=== PATIENT | female | born 2000 | race Hispanic/Latino ===

== ENCOUNTER 2018-07-06 18:04 | Observation (INO) | payer BC ==
--- NOTE | 2018-07-06 19:50 | PDOC.FPROB ---
FMR OB H&P: HPI - History of Present Illness Chief Complaint: Elevated BP in Clinic Indentification: Ms Belcher is a 18yo @ 34wks by 10.3wk US (EDC 08/17/18) History of Present Illness: Blood pressure was elevated in clinic at 156/98 with repeat 145/95. She reports blurry vision in her right eye on Friday07/04/18 but no vision changes currently. Denies headache, RUQ pain. Endorses FM, denies LOF, VB, CTX or change in discharge. Primary Care Physician: Dr Goss FMR OB H&P: Current - Care : 1 Para: 0 Gestational age: 32 Due date: 08/17/18 Dating Criteria: 10.3wk US Course/Complications: Low lying placenta Elevated BPs Anemia of - OB Labs Blood type: O RH: positive Antibody Screen: negative HIV: negative RPR: negative HepBsAg: negative Rubella: immune Quad screen: negative Urine drug screen: negative 1 hour gtt: 114 A1c: 5.1% GBS: unknown H&H: .06/28 Platelets: 309 - First Trimester Ultrasound First trimester: Possible placenta previa - Anatomy Survey Anatomy survey: Limited, return in 4 weeks. Unable to visualize lips/nose. LVOT/RVOT. Arms FMR OB H&P: History - Past Medical History PMH: None - OB History OB History: First - LATHE SPOTTER History LATHE SPOTTER History: Not due for PAP for 1 yr - Surgical History Sx History: Unremarkable - Social History Social History: Denies alcohol, tobacco, drug use. - Family History Family History: Unremarkable FMR OB H&P: Medications - Current Home Medications: Medication Instructions Recorded Confirmed Type Ferrous Sulfate 325 mg PO QAM 07/06/18 07/06/18 History Comb No.42/Folic Acid 1 tablet PO DAILY 07/06/18 07/06/18 History [Prena1 Chewable Tablet] Allergies/Adverse Reactions: Allergies Allergy/AdvReac Type Severity Reaction Status Date / Time No Known Allergies Allergy Verified 07/06/18 21:21 FMR OB H&P: ROS - Review of Systems General: denies: fever/chills, weight/appetite/sleep changes, fatigue Eyes: reports: others (blurry vision in right eye 07/04/18). denies: double vision, scotomas, floaters ENT: denies: nasal congestion, rhinorrhea Cardiovascular: denies: chest pain, palpitation Respiratory: reports: shortness of breath. denies: cough, congestion Gastrointestinal: denies: abdominal pain, nausea, vomiting Genitourinary (Female): denies: vaginal discharge, vaginal bleeding, contractions Musculoskeletal: reports: swelling. denies: pain Neurologic: denies: weakness, headache Integumentary: denies: rash, lesions FMR OB H&P: Vital Signs - Heart Tones Baseline: 140 Variability: moderate Acceleration: present Deceleration: absent Category: category 1 FMR OB H&P: Physical Exam - Physical Exam General: NAD, awake, alert and oriented HEENT: normocephalic and atraumatic, MMM, conjunctiva clear, grossly normal hearing, oropharynx clear Neck: supple, trachea midline Heart: RRR, no murmurs/rubs/gallops, pulses present, no edema General: CTAB, good air movement, no wheezing Abdomen: soft, gravid, non-tender, bowel sound present Musculoskeletal: pulses present, FROM in all four extremities, no misalignment/ asymmetry, no atrophy Neurological: no focal deficit Skin: no rash, capillary refill <2 seconds Psychiatric: intact recent and remote memory, good judgement and insight, normal mood and affect - Pelvic Exam Membranes: Intact FMR OB H&P: A/P - Problem List (1) third trimester Current Visit: Yes Status: Acute (2) Elevated blood pressure affecting in third trimester, antepartum Current Visit: Yes Status: Acute Code(s): O16.3 - UNSPECIFIED MATERNAL HYPERTENSION, THIRD TRIMESTER (3) Low lying placenta nos or without hemorrhage, third trimester Current Visit: Yes Status: Acute Code(s): O44.43 - LOW LYING PLACENTA NOS OR WITHOUT HEMOR, THIRD TRIMESTER Disposition: Ms Belcher is a 18yo @ 34wks by 10.3wk US (EDC 08/17/18) Elevated BPs in third trimester - BPs in clinic 156/98 with repeat 145/95 - Initial BP here 151/89 - Ordered Pre-E labs: CBC, CMP, Urine protein/Cr and 24 hr urine - Plan to continue to monitor BPs overnight and 24hr urine collection sIUP - NST reactive - Continue PNV Low lying placenta - 1.25cm from internal os on 07/01 - Repeat TVUS at 36wks Anemia of - Last Hgb 9.1 - CBC ordered - Continue iron Discussion: Date/Time: 07/06/181949 This H&P was discussed with Dr. Johnston and Dr. Ocasio who agree with the above documentation and plan. Addendum - Attending - Attending Attestation Date/Time: 07/07/18 1003 I personally evaluated the patient and discussed the management with Dr. Gonzalez on 07/06/2018 I agree with the History, Examination, Assessment and Plan documented above with any addition or exceptions noted below- 18 yo @34 weeks sent from clinic due to elevated BP. Serial BPs in L&D with intermittently elevated BP ( pressures elevated). Denies any RAI, visual changes, abd pain. Category 1 FHTs. Opdyke- no ctx. Labs: Hjj=723, AST/ALT= 15/7, Urine Pr/Cr=0.42. A/P: 1) IUP @ 34 weeks with pre-eclampsia without severe features- will place in obs; 24 hour for protein. Will give course of steroids for lung maturity. NST qshift. 2) Low lying placenta- on USG on 07/01, placenta 1.25 cm from os. Will repeat USG in 2 weeks.
[2018-07-06 19:52] VITALS: BMI 34.4
[2018-07-06 20:28] LABS: #Eosinphils 0.1 thou/uL (0.0-0.7); #Monocytes 0.4 thou/uL (0.11-0.59); #Neutrophils 4.7 thou/uL (1.40-6.50); %Basophils 0.5 % (0.0-1.0); %Eosinophils 1.6 % (0.0-10.0); %Lymphocytes 27.3 % (28.0-48.0); %Monocytes 5.7 % (0.0-4.0); %Neutrophils 64.9 % (31.0-61.0); Hemoglobin 10.5 g/dL (12.0-16.0); Mean Corpuscular HGB CONC 33.7 g/dL (32.0-36.0); Mean Corpuscular Hemoglobin 27.4 pg (25.0-35.0); Mean Corpuscular Volume 81.4 fL (78.0-98.0); Mean Platelet Volume 9.5 fL (7.4-10.4); Platelet Count 198 thou/uL (130-400); RBC Distribution Width 17.2 % (11.5-14.5); Red Blood Cell (RBC) Count 3.83 mill/uL (4.00-5.20); White Blood Cell (WBC) Count 7.2 thou/uL (4.8-10.8)
[2018-07-06 20:46] LABS: ALT (SGPT) Less than 7 U/L (8-55); AST (SGOT) 15 U/L (5-34); Albumin 3.3 g/dL (3.5-5.0); Alkaline Phosphatase 131 U/L (40-150); Anion Gap 14 mmol/L (10-20); BUN (Urea Nitrogen) 12 mg/dL (7.0-18.7); Bilirubin, Total 0.2 mg/dL (0.2-1.2); Calc. Creatinine Clearance 186 mL/min (70-130); Calcium 9.6 mg/dL (7.8-10.44); Carbon Dioxide 20 mmol/L (22-29); Chloride 107 mmol/L (98-107); Estimated GFR-MDRD Greater than 90; Globulin 3.2 g/dL (2.4-3.5); Glucose 117 mg/dL (70-105); Potassium 3.8 mmol/L (3.5-5.1); Protein, Total 6.5 g/dL (6.0-8.3); Sodium 137 mmol/L (136-145)
[2018-07-06 21:37] LABS: Creatinine, Urine 259.95 mg/dL (47-110)
--- NOTE | 2018-07-07 00:04 | ULT ---
OB ULTRASOUND BIOPHYSICAL PROFILE: TECHNIQUE: Multiple longitudinal and transverse images of an intrauterine are obtained, using a Multi- Hertz curvilinear transducer. Real-time color-flow is used to evaluate the fetus. FINDINGS: Images demonstrate a viable intrauterine with the fetus in a cephalic presentation. The pl acenta is anterior and grade 2. Amniotic fluid index measures 13.1 cm. Cervical length measures 4.6 cm. Biophysical profile measurements are as follows: tone: 2 breathin movement: 2 Amniotic fluid volume: 2 Composite: 8/8 IMPRESSION: Biophysical profile measures 8/8. POS: [facility]
[2018-07-07] MEDS: Dexamethasone 4 mg/ml Vial IM SCH ×3 (01:17→22:38)
--- NOTE | 2018-07-07 08:01 | PDOC.OBAPN ---
FMR OB AP PN: Sub - Interval History Hospital Day: 2 Chief Complaint: elevated BP Indentification: @ 34.1 wks by 10.3wk US Interval History: Denies RAI, SOB, visual changes, swelling. +FM, no N/V/D, no discharge, cxns FMR OB AP PN: Obj - Maternal Vital signs: BP: 137/88 -> 119/72 HR: 77 RR: 18 Tmax: 98.2 Pox: 98% on ra Wt: 82kg - Urine output I&O: 07/06/18 07/07/18 07/08/18 06:59 06:59 06:59 Intake Total 250 Output Total 450 Balance -200 FMR OB AP PN: Exam - Physical Exam General: NAD, awake, alert and oriented HEENT: normocephalic and atraumatic, PERRLA, EOMI Neck: supple Heart: RRR, normal S1/S2, no murmurs/rubs/gallops, pulses present General: CTAB, no respiratory distress, good air movement, no wheezing Abdomen: soft, gravid, fundus(cm), bowel sound present Musculoskeletal: normal gait and station, pulses present Skin: no rash, good tugor, capillary refill <2 seconds FMR OB AP PN: Data - Labs Lab results: Laboratory Results - last 24 hr 07/06/18 07/06/18 07/06/18 20:17 20:17 20:56 WBC 7.2 RBC 3.83 L Hgb 10.5 L Hct 31.1 L MCV 81.4 MCH 27.4 MCHC 33.7 RDW 17.2 H Plt Count 198 MPV 9.5 Neutrophils % 64.9 H Lymphocytes % 27.3 L Monocytes % 5.7 H Eosinophils % 1.6 Basophils % 0.5 Neutrophils # 4.7 Lymphocytes # 2.0 Monocytes # 0.4 Eosinophils # 0.1 Basophils # 0.0 Sodium 137 Potassium 3.8 Chloride 107 Carbon Dioxide 20 L Anion Gap 14 BUN 12 Creatinine 0.63 Estimated GFR (MDRD) Greater than 90 Glucose 117 H Calcium 9.6 Total Bilirubin 0.2 AST 15 ALT Less than 7 L Alkaline Phosphatase 131 Serum Total Protein 6.5 Albumin 3.3 L Globulin 3.2 Albumin/Globulin Ratio 1.0 L U Random Total Protein 109 H Urine Creatinine 259.95 H FMR OB AP PN: A/P - Problem List (1) Elevated blood pressure affecting in third trimester, antepartum Current Visit: Yes Status: Acute Code(s): O16.3 - UNSPECIFIED MATERNAL HYPERTENSION, THIRD TRIMESTER (2) Low lying placenta nos or without hemorrhage, third trimester Current Visit: Yes Status: Acute Code(s): O44.43 - LOW LYING PLACENTA NOS OR WITHOUT HEMOR, THIRD TRIMESTER (3) third trimester Current Visit: Yes Status: Acute Discussion: Date/Time: 07/07/18 0800 18yo @ 34.1 wks by 10.3wk US EDC 08/17/18 Elevated BPs in third trimester - BPs in clinic 156/98,145/95 - verbal reported BP 151/89 on arrival, not charted - recorded BPs 136.85, 137/88, 119/72 - Pr/Cr 0.42, CMP, CBC WNL - 24 hour urine pending sIUP - NST qShift - Continue PNV - betamethasone q 12 hours Low lying placenta - 1.25cm from internal os on 07/01 - Repeat TVUS at 36wks Anemia of - hgb 10.5 - Continue iron This H&P was discussed with Dr. Melgar who agrees with the above documentation and plan.
[2018-07-07] MEDS ORDERED: Dexamethasone 4 mg/ml Vial IM SCH (09:00)
[2018-07-07] MEDS: Prenatal Vitamin 1 TAB PO SCH (09:07)
[2018-07-07] MEDS: Ferrous Gluconate 324 MG TAB PO SCH (09:07)
--- NOTE | 2018-07-07 18:51 | PDOC.OBAPN ---
FMR OB AP PN: Sub - Interval History Hospital Day: 2 Chief Complaint: Elevated Pressures Indentification: 18 year old @ 34.1 weeks Interval History: Patient doing well. Denies RAI/vision changes. Reports mild SOB , no distress FMR OB AP PN: Obj - Maternal Vital signs: BP: 145/73 HR: 87 RR: 18 Tmax: 98.1 Pox: 98% on RA - Urine output I&O: 07/06/18 07/07/18 07/08/18 06:59 06:59 06:59 Intake Total 250 Output Total 450 Balance -200 FMR OB AP PN: Exam - Physical Exam General: NAD HEENT: normocephalic and atraumatic, EOMI Heart: RRR General: CTAB Neurological: cranial nerves II through XII intact, DTR +2 FMR OB AP PN: Data - Labs Lab results: Laboratory Results - last 24 hr 07/06/18 07/06/18 07/06/18 20:17 20:17 20:17 WBC 7.2 RBC 3.83 L Hgb 10.5 L Hct 31.1 L MCV 81.4 MCH 27.4 MCHC 33.7 RDW 17.2 H Plt Count 198 MPV 9.5 Neutrophils % 64.9 H Lymphocytes % 27.3 L Monocytes % 5.7 H Eosinophils % 1.6 Basophils % 0.5 Neutrophils # 4.7 Lymphocytes # 2.0 Monocytes # 0.4 Eosinophils # 0.1 Basophils # 0.0 Sodium 137 Potassium 3.8 Chloride 107 Carbon Dioxide 20 L Anion Gap 14 BUN 12 Creatinine 0.63 Estimated GFR (MDRD) Greater than 90 Glucose 117 H Uric Acid 6.5 H Calcium 9.6 Total Bilirubin 0.2 AST 15 ALT Less than 7 L Alkaline Phosphatase 131 Serum Total Protein 6.5 Albumin 3.3 L Globulin 3.2 Albumin/Globulin Ratio 1.0 L U Random Total Protein Urine Creatinine 07/06/18 20:56 WBC RBC Hgb Hct MCV MCH MCHC RDW Plt Count MPV Neutrophils % Lymphocytes % Monocytes % Eosinophils % Basophils % Neutrophils # Lymphocytes # Monocytes # Eosinophils # Basophils # Sodium Potassium Chloride Carbon Dioxide Anion Gap BUN Creatinine Estimated GFR (MDRD) Glucose Uric Acid Calcium Total Bilirubin AST ALT Alkaline Phosphatase Serum Total Protein Albumin Globulin Albumin/Globulin Ratio U Random Total Protein 109 H Urine Creatinine 259.95 H FMR OB AP PN: A/P - Problem List (1) Elevated blood pressure affecting in third trimester, antepartum Current Visit: Yes Status: Acute Code(s): O16.3 - UNSPECIFIED MATERNAL HYPERTENSION, THIRD TRIMESTER (2) Low lying placenta nos or without hemorrhage, third trimester Current Visit: Yes Status: Acute Code(s): O44.43 - LOW LYING PLACENTA NOS OR WITHOUT HEMOR, THIRD TRIMESTER (3) third trimester Current Visit: Yes Status: Acute Disposition: Patient stable at this time. No complaints Discussed need to stay overnight for further BP monitoring. 24-hr urine pending. AM labs ordered. Will need closer monitoring after discharge including frequent office visits and testing. Discussion: Date/Time: 07/07/18 8301 This H&P was discussed with Dr. Melgar who agrees with the above documentation and plan.
[2018-07-07 21:05] LABS: Urine Total Volume 1550 mL (600-1600)
[2018-07-07 21:27] LABS: Protein - 24 Hr 1395 mg/24 hr (Less than 300); Protein, Urine 90 mg/dL (1-14)
[2018-07-08 06:55] LABS: Platelet Count 204 thou/uL (130-400)
[2018-07-08 06:59] LABS: AST (SGOT) 14 U/L (5-34); Calc. Creatinine Clearance 177 mL/min (70-130); Estimated GFR-MDRD Greater than 90
[2018-07-08 07:24] LABS: Hemoglobin 10.1 g/dL (12.0-16.0); Mean Corpuscular Volume 81.5 fL (78.0-98.0); Red Blood Cell (RBC) Count 3.68 mill/uL (4.00-5.20); White Blood Cell (WBC) Count 7.5 thou/uL (4.8-10.8)
[2018-07-08 07:25] LABS: Mean Corpuscular HGB CONC 33.8 g/dL (32.0-36.0); Mean Corpuscular Hemoglobin 27.5 pg (25.0-35.0); Mean Platelet Volume 9.3 fL (7.4-10.4); RBC Distribution Width 17.4 % (11.5-14.5)
--- NOTE | 2018-07-08 08:01 | PDOC.OBAPN ---
FMR OB AP PN: Sub - Interval History Hospital Day: 3 Chief Complaint: elevated bp Indentification: 18 yo at 34/2 wks by 10.3 wk US Interval History: elevated BPs overnight, denies RAI, SOB, vision changes, swelling FMR OB AP PN: Obj - Maternal Vital signs: BP: 147/75, 157/81, 154/73, 125/74 HR: 85 RR: Tmax: 18 Pox: 98% on ra Wt: 82kg - Urine output I&O: 07/07/18 07/08/18 07/09/18 06:59 06:59 06:59 Intake Total 250 2000 Output Total 450 700 Balance -200 1300 R OB AP PN: Exam - Physical Exam General: NAD, awake, alert and oriented HEENT: normocephalic and atraumatic, PERRLA, EOMI Neck: supple Heart: RRR, normal S1/S2, no murmurs/rubs/gallops, pulses present General: CTAB, no respiratory distress, good air movement, no wheezing Abdomen: soft, gravid, non-tender, bowel sound present Musculoskeletal: normal gait and station, pulses present Skin: no rash, capillary refill <2 seconds Lymphatic: no unusual bruising or bleeding R OB AP PN: Data - Labs Lab results: Laboratory Results - last 24 hr 07/06/18 07/07/18 07/08/18 20:17 20:42 06:27 WBC RBC Hgb Hct MCV MCH MCHC RDW Plt Count MPV Creatinine 0.66 Estimated GFR (MDRD) Greater than 90 Uric Acid 6.5 H AST 14 Urine Protein 90 H Ur Collection Duration 24 Urine Total Volume 1550 U Tot Protein 24h, Calc 1395 07/08/18 06:27 WBC 7.5 RBC 3.68 L Hgb 10.1 L Hct 30.0 L MCV 81.5 MCH 27.5 MCHC 33.8 RDW 17.4 H Plt Count 204 MPV 9.3 Creatinine Estimated GFR (MDRD) Uric Acid AST Urine Protein Ur Collection Duration Urine Total Volume U Tot Protein 24h, Calc R OB AP PN: A/P - Problem List (1) Elevated blood pressure affecting in third trimester, antepartum Current Visit: Yes Status: Acute Code(s): O16.3 - UNSPECIFIED MATERNAL HYPERTENSION, THIRD TRIMESTER (2) Low lying placenta nos or without hemorrhage, third trimester Current Visit: Yes Status: Acute Code(s): O44.43 - LOW LYING PLACENTA NOS OR WITHOUT HEMOR, THIRD TRIMESTER (3) third trimester Current Visit: Yes Status: Acute Discussion: Date/Time: 07/08/18 0801 18yo @ 34.1 wks by 10.3wk US EDC 08/17/18 Mild Pre-eclampsia - mild range bps overnight - denies sxs, denies cxns, bleeding, d/c - 24 hr urine proterin 1300mg (mild range) - Pr/Cr 0.42, CMP, CBC WNL - f/u in clinc in 2 days, BPP/NST - home bp cuff, take pressures x2 per day, triage precautions discussed - MFM US on 07/13 - anticipate scheduled delivery at 37wks, will discuss on rounds sIUP - NST qShift - Continue PNV - dexamethasone q 12 hours, 4th dose this AM Low lying placenta - 1.25cm from internal os on 07/01 - Repeat TVUS at 36wks - MFM US on 07/13 Anemia of - hgb 10.5 - Continue iron This H&P was discussed with Dr. Melgar who agrees with the above documentation and plan.
[2018-07-08] MEDS: Prenatal Vitamin 1 TAB PO SCH (09:26)
[2018-07-08] MEDS: Ferrous Gluconate 324 MG TAB PO SCH (09:26)
--- NOTE | 2018-07-08 11:02 | PDOC.EVN ---
Event Note - Event Note Event Note: Reviewed heart tracing Multiple accels No cxns or decels Moderate variability Baseline 140
[2018-07-08] MEDS: Dexamethasone 4 mg/ml Vial IM SCH (11:30)
[2018-07-08 11:56] VITALS: BP 127/75; TEMP 98
--- NOTE | 2018-07-08 15:25 | DIS ---
DATE OF ADMISSION: 07/06/2018 DATE OF DISCHARGE: 07/08/2018 RESIDENT: Ezio Ayon MD. ADMITTING ATTENDING: Tanya Johnston MD. DISCHARGE ATTENDING: Elsie Santacruz DO. CONSULTS: None. PROCEDURES: heart monitoring. PRIMARY DIAGNOSIS: -induced hypertension. SECONDARY DIAGNOSIS: A 34-week intrauterine , low-lying placenta, anemia, . DISCHARGE MEDICATIONS: None. Discontinued medications: None. HISTORY OF PRESENT ILLNESS/HOSPITAL COURSE: This is a 18-year-old, G1, P0, who came in at 34 weeks by 10.3 week ultrasound for elevated blood pressures in clinic. She did have occasional blurry vision in her right eye 2 days prior to admission, but no changes at the hospital. Denied headache, right upper quadrant pain. Endorsed good movement. No loss of fluid, bleeding, contractions, or other changes. The patient was given a -induced hypertension workup. Urine protein-creatinine ratio as well as 24-hour urine protein suggest mild preeclampsia. The patient had a few mild range blood pressures over the course of the stay. She was asymptomatic. She did not have any contractions throughout the stay. monitoring throughout the stay was reactive. The patient is discharged at 34 and 2 weeks. She has a clinic followup in 2 days. She will have weekly BPP and NST up until delivery. She has an ultrasound scheduled with [facility] in 5 days. This ultrasound will determine the location of her placenta and then whether or not a or vaginal delivery will be indicated. We will plan for induction or section at [address] Uric acid was mildly elevated at 6.7. Her transaminases were normal. Her platelets were within normal limits throughout the stay. DISPOSITION: Stable. DISCHARGE INSTRUCTIONS: 1. Location: Home. 2. Diet: Regular. 3. Activity: As tolerated. 4. Followup: Follow up in 2 days by [facility] for BPP, NST, OB clinic followup. Appointment on 07/13/2018 with [facility] for ultrasound. This patient will need to be scheduled for induction versus section at 37 weeks' gestation based on the results of the [facility] ultrasound. She will need weekly BPP and NSTs up until delivery. She will need to be seen in clinic weekly throughout the rest of the with weekly pre-elapse. Job ID: [id number] [facility]
== END 2018-07-08 12:10 | disposition home or self-care (01) ==
LOC: L&D/OP 18:04 → 3SW 22:09
PROVIDERS: ADMIT Family Medicine; ATTEND Family Medicine
DX: O13.3 Gestational [pregnancy-induced] hypertension without significant proteinuria, third trimester (principal); O14.03 Mild to moderate pre-eclampsia, third trimester; O44.43 Low lying placenta NOS or without hemorrhage, third trimester; O99.013 Anemia complicating pregnancy, third trimester; D64.9 Anemia, unspecified; Z3A.34 34 weeks gestation of pregnancy; Z79.899 Other long term (current) drug therapy
CPT/HCPCS: 36415; 59025; 76819; 80053; 82565; 82570; 84156; 84450; 84550; 85025; 85027; 87086; 96372; 99285; G0378; J1100

== ENCOUNTER 2018-07-14 18:04 | Inpatient (IN) | payer BC, SELFPAY ==
[~2018-07-14 18:04] MED LIST: ePHEDrine 50 MG/ML VIAL ONE
[2018-07-14] MEDS ORDERED: Acetaminophen 500 MG TAB PO PRN (18:40)
[2018-07-14] MEDS ORDERED: Promethazine HCl 25 MG/ML VIAL IM PRN ×2 (18:40→22:10)
[2018-07-14] MEDS ORDERED: Ondansetron PF 4 MG/2 ML Vial IVP PRN ×2 (18:40→22:10)
[2018-07-14 18:41] VITALS: BMI 34.5
--- NOTE | 2018-07-14 18:45 | PDOC.FPROB ---
FMR OB H&P: HPI - History of Present Illness Chief Complaint: HTN History of Present Illness: 18 yo G1 @ 35.1 by 10.3 wk US presents from clinic after having elevated BPs 159 /105, 158/99, 154/108, reactive NST. She denies headache, vision changes, dizziness, RUQ pain, or swelling more than normal. Notes suprapubic discomfort, denies dysuria. Denies contractions, vaginal discharge or bleeding. She has Pre- E this that has been monitored. GBS sent but not resulted. Primary Care Physician: Chandra Ayon FMR OB H&P: Current - Care : 1 Para: 0 Gestational age: 35.1 Due date: 08/17/2018 Dating Criteria: 10.3 wk US Course/Complications: Low lying placenta, Pre-E - OB Labs Blood type: O RH: positive Antibody Screen: negative HIV: negative RPR: negative HepBsAg: negative Rubella: immune 1 hour gtt: 114 A1c: 5.2 H&H: 9.1/26.1 Platelets: 284 - Additional Ultrasound Additional: [facility] ultrasound 07/13 showed placenta 1.1 cm from os FMR OB H&P: History - Past Medical History PMH: carpal tunnel - OB History OB History: Pre-eclampsia, low lying placenta, iron deficiency anemia - [employer]IRS[employer] History [employer] History: None - Surgical History Sx History: None FMR OB H&P: Medications - Current Home Medications: Medication Instructions Recorded Confirmed Type Ferrous Sulfate 325 mg PO QAM 07/06/18 07/14/18 History Comb No.42/Folic Acid 1 tablet PO DAILY 07/06/18 07/14/18 History [Prena1 Chewable Tablet] Allergies/Adverse Reactions: Allergies Allergy/AdvReac Type Severity Reaction Status Date / Time No Known Allergies Allergy Verified 07/06/18 21:21 FMR OB H&P: ROS - Review of Systems General: denies: fever/chills Cardiovascular: reports: orthopnea. denies: chest pain, edema Respiratory: denies: cough, shortness of breath Gastrointestinal: denies: abdominal pain, cramping, vomiting Genitourinary (Female): denies: dysuria, vaginal discharge, vaginal bleeding, contractions, vaginal pressure Neurologic: denies: seizures, headache FMR OB H&P: Vital Signs - Maternal Vital signs: 165/101, 74 - Heart Tones Baseline: 150 Variability: moderate Acceleration: absent Category: category 1 Friant contractions every: none FMR OB H&P: Physical Exam - Physical Exam General: awake, alert and oriented HEENT: normocephalic and atraumatic Heart: RRR, normal S1/S2, other (mild nonpitting edema BLE) General: CTAB, no respiratory distress Abdomen: soft, gravid Skin: good tugor FMR OB H&P: A/P - Problem List (1) Pre-eclampsia Current Visit: Yes Status: Acute Code(s): O14.90 - UNSPECIFIED PRE-ECLAMPSIA , UNSPECIFIED TRIMESTER (2) Anemia affecting Current Visit: Yes Status: Acute Code(s): O99.019 - ANEMIA COMPLICATING , UNSPECIFIED TRIMESTER (3) Low lying placenta nos or without hemorrhage, third trimester Current Visit: No Status: Acute Code(s): O44.43 - LOW LYING PLACENTA NOS OR WITHOUT HEMOR, THIRD TRIMESTER Discussion: Date/Time: 07/14/181844 Pre-eclampsia w/ severe features - previous diagnosis of pre-E monitored in outpatient setting, 24 hr urine prot 1400. Now BP 173/105 qualifying pt for severe features. - s/p steroids x4 - CAT 1 - get CBC, CMP, urine prot/cr labs stat - start magnesium, hydralazine prn - plan for tonight 2/2 pre-E w/ severe features Low lying placenta - 1.1 cm from os on MFM US 07/13 Anemia - Hgb 9.9 05/2018, on iron supplement - pending H/H here This H&P was discussed with Dr. Stokes and Dr. Segovia who agree with the above documentation and plan.
[2018-07-14] MEDS ORDERED: Calcium Gluc 4.6 MEQ/10 ML (100 MG/ML) SLOW IVP PRN (19:15)
[2018-07-14] MEDS ORDERED: Magnesium Sulfate 20 GM/WATER 500 ML BAG IVPB SCH (19:15)
[2018-07-14] MEDS ORDERED: hydrALAZINE 20 MG/ML VIAL SLOW IVP PRN (19:17)
[2018-07-14] MEDS: Lactated Ringer's 1,000 ML IV SCH (19:30)
[2018-07-14] MEDS ORDERED: hydrALAZINE 20 MG/ML VIAL SLOW IVP SCH (19:30)
[2018-07-14 20:27] LABS: Hemoglobin 11.9 g/dL (12.0-16.0); Mean Corpuscular HGB CONC 33.4 g/dL (32.0-36.0); Mean Corpuscular Hemoglobin 27.2 pg (25.0-35.0); Mean Corpuscular Volume 81.4 fL (78.0-98.0); Mean Platelet Volume 9.9 fL (7.4-10.4); Platelet Count 213 thou/uL (130-400); Red Blood Cell (RBC) Count 4.37 mill/uL (4.00-5.20); White Blood Cell (WBC) Count 6.6 thou/uL (4.8-10.8)
[2018-07-14 20:28] LABS: Bilirubin Negative (Negative); Blood, Urine Negative (Negative); Clarity CLOUDY (Clear); Glucose, Urine (Dipstick) Negative (Negative); Leukocyte Moderate (Negative); Nitrite Negative (Negative); Protein, Urine (Dipstick) > or equal to 300 mg/dL (Neg-Trace); Specific Gravity, Urine 1.026 (1.002-1.036); pH, Urine 6.5 (5.0-9.0)
[2018-07-14 20:30] LABS: Bacteria/HPF 1+ HPF (None Seen); Hyaline Casts/LPF 7-10 HYALINE CAST LPF (0-3 Hyaline); Pathc Cast-AUWi Flag 1.16 (0-2.49)
[2018-07-14] MEDS ORDERED: Fentanyl 100 MCG/2 ML VIAL ONE (20:31)
[2018-07-14] MEDS ORDERED: MORPHINE 5 MG/10 ML PF VIAL ONE (20:31)
[2018-07-14 20:32] LABS: Urine Culture Reflex No No
[2018-07-14] MEDS ORDERED: ePHEDrine/0.9% NaCl/PF SYRINGE 50 mg/10 ml ONE (20:32)
[2018-07-14] MEDS ORDERED: Oxytocin 10 UNITS/ML VIAL ONE (20:32)
--- NOTE | 2018-07-14 20:45 | PDOC.EVN ---
Event Note - Event Note Event Note: started mag and hydralazine bp 137/78 patient asx
[2018-07-14 20:51] LABS: ALT (SGPT) Less than 7 U/L (8-55); AST (SGOT) 16 U/L (5-34); Alkaline Phosphatase 158 U/L (40-150); Anion Gap 15 mmol/L (10-20); BUN (Urea Nitrogen) 15 mg/dL (7.0-18.7); Bilirubin, Total Less than 0.2 mg/dL (0.2-1.2); Calc. Creatinine Clearance 176 mL/min (70-130); Calcium 9.7 mg/dL (7.8-10.44); Carbon Dioxide 19 mmol/L (22-29); Chloride 107 mmol/L (98-107); Estimated GFR-MDRD Greater than 90; Glucose 103 mg/dL (70-105); Potassium 4.1 mmol/L (3.5-5.1); Sodium 137 mmol/L (136-145)
[2018-07-14] MEDS ORDERED: Bicitra 30 ML UDCUP PO SCH (21:00)
[2018-07-14 21:10] LABS: Syphilis Antibody Nonreactive (Nonreactive); Syphilis Antibody Index 0.06 S/CO (<1.00 Non-Reactive)
[2018-07-14 21:45] LABS: Creatinine, Urine 171.9 mg/dL (47-110)
[2018-07-14] MEDS ORDERED: HYDROmorphone 2 MG/ML VIAL SLOW IVP PRN (22:10)
[2018-07-14] MEDS ORDERED: diphenhydrAMINE 50 MG/ML VIAL IVP PRN (22:10)
[2018-07-14] MEDS ORDERED: Naloxone HCl 0.4 mg/ml Vial IV PRN (22:10)
[2018-07-14] MEDS ORDERED: Eucerin (Mineral Oil/Petrolatum,White) 30 gm Jar TOP PRN (22:10)
[2018-07-14] MEDS ORDERED: Ketorolac Tromethamine 30 MG/ML VIAL IVP PRN (22:10)
[2018-07-14] MEDS ORDERED: Naloxone HCl 0.4 mg/ml Vial IVP PRN ×2 (22:10)
[2018-07-14] MEDS ORDERED: L&D-Morphine 4 MG/ML VIAL SLOW IVP PRN (22:10)
[2018-07-14] MEDS ORDERED: Promethazine HCl 25 MG SUPP PR PRN (22:10)
[2018-07-14] MEDS ORDERED: Ondansetron HCl/PF 4 MG/2 ML Vial IVP PRN (22:10)
[2018-07-14] MEDS ORDERED: Meperidine HCl/PF 25 MG/ML VIAL SLOW IVP PRN (22:10)
[2018-07-14] MEDS ORDERED: Communication Order-Pharmacy FS SCH (22:15)
[2018-07-14] MEDS ORDERED: Ketorolac Tromethamine 30 MG/ML VIAL IVP SCH (22:15)
[2018-07-14 23:41] LABS: HBSAg Index 0.23 S/CO (0-0.99); Hep B Surf Ag Non-Reactive S/CO (NonReactive)
[2018-07-14 23:42] LABS: HIV (1/2) Antibody/Antigen Non-Reactive (NonReactive)
[2018-07-15] MEDS: Misoprostol 200 MCG TAB ONE ×3 (00:20→00:22)
[2018-07-15] MEDS: Lactated Ringer's 1,000 ML IV SCH ×2 (00:52→13:49)
--- NOTE | 2018-07-15 01:46 | PDOC.EVN ---
Event Note - Event Note Event Note: Called to bedside by nurse around 0000 for post op bleeding. Patient had intraoperative QBL of 710. She then had hemorrhage of 300 ml followed by 289 ml an hour later. Fundus noted to be firm at umbilicus without further hemorrhage on fundal massage. Instructed nurse to give rectal cytotec 800 mg. Heart: RRR, no M/R/G neuro: reflex 2+ 18 yr old G1 s/p PLTCS at 35.1 wks 2/2 preeclampsia with severe features now post op approx 2 hours at time of exam. PTIUP delivered via PLTCS hemorrhage -will give 800 mg cytotec rectally -fundus firm -monitor closely pre-eclampsia with severe features s/p delivery -BP now all < 140/90 -mag initiated -cont to monitor closely
--- NOTE | 2018-07-15 02:29 | PDOC.EVN ---
Event Note - Event Note Event Note: 4 hour post op note and mag check Patient doing well. Denies headache, vision change, nausea, RUQ abdominal pain. Bleeding has decreased. BP 122/79, max was 157/76 @ 0055. Bandages clean, dry, intact. 18 yr old G1 s/p PLTCS at 35.1 wks 2/2 preeclampsia with severe features hemorrhage - Patient had intraoperative QBL of 710. She then had hemorrhage of 300 ml followed by 289 ml an hour later - s/p 1 dose rectal cytotec. Bleeding improved. - Uterus firm @ umbilicus Pre-eclampsia with severe features s/p delivery, asymptomatic - BP now all < 140/90 - continue mag for 24 hrs (until 2044) - DTRs intact, urine output adequate - cont to monitor closely, recheck in 4 hrs.
--- NOTE | 2018-07-15 04:01 | OP ---
DATE OF PROCEDURE: 07/14/2018 RESIDENT SURGEON: Ezio Ayon MD BED MANAGER SURGEON: Keiko Goss MD. ATTENDING SURGEON: Jose Segovia MD PROCEDURE: Primary low transverse section. PREOPERATIVE DIAGNOSES: 1. intrauterine , 35.1 weeks gestation. 2. Preeclampsia with severe features. 3. Low-lying placenta, 1 cm from os. POSTOPERATIVE DIAGNOSES: 1. intrauterine , 35.1 weeks gestation. 2. Preeclampsia with severe features. 3. Low-lying placenta, 1 cm from os. ANESTHESIA: Spinal. INDICATIONS: This is a 18-year-old G1, P0 female at 35 and 1 weeks gestation, who presents for section secondary to PE with severe features and low-lying placenta. PROCEDURE IN DETAIL: After risks, benefits, and alternatives were explained to the patient, she gave informed consent. Preoperative antibiotics included cefazolin 2 g IV. The patient was taken to the operating room and spinal anesthesia was initiated. The patient was placed in the supine position with a left tilt and prepped and draped in the usual sterile fashion. A Pfannenstiel incision was made with a scalpel and carried down to the level of the fascia which was sharply nicked. The fascial cut was extended bilaterally with Craven scissors. The inferior and superior edges of the cut, fascial edges were elevated with Ricci clamps and the underlying rectus muscles were sharply and bluntly dissected free. The recti were divided digitally and retracted manually. The peritoneum was entered bluntly and retracted manually. A bladder blade was placed. A bladder flap was not needed as the bladder was low. A low-transverse score was made with a scalpel and the uterus was entered in the midline with the scalpel. Clear fluid was seen. Hysterotomy was extended manually. The was noted to be vertex. With fundal pressure, the infant did not initially deliver. Therefore, vacuum assistance was used. Vacuum was placed and elevated to green pressure. The infant delivered easily without any pop offs. The infant's mouth and nares were bulb suctioned. The cord was clamped and cut, and grossly normal female was handed to waiting nurse. Cord blood was obtained. Placenta was manually extracted and found to be intact with three-vessel cord and discarded. The uterus was externalized and the endometrium was curetted with a dry lap. The bladder blade was replaced and the uterus was closed with a running locking 0 Monocryl suture followed by a running nonlocking 0 Monocryl imbricating suture. Following this, hemostasis was noted. The abdomen was examined and found to be free of clots and bleeders. The uterus was internalized and the hysterotomy was again noted to be hemostatic. The peritoneum was closed with a running nonlocking 2-0 Vicryl suture. The fascia was closed with a running nonlocking 0 PDS suture. The subcutaneous tissue was irrigated and there were no bleeders. The skin was approximated using a running 0 Monocryl on a Abdullahi needle. The subcutaneous tissue was closed using simple interrupted knots of 2-0 plain gut. The patient tolerated the procedure well and was taken to the recovery room in stable condition. The patient continued on magnesium for 24 hours after delivery. ESTIMATED BLOOD LOSS: 710 mL. COMPLICATIONS: None. SPECIMENS: Cord blood sent to lab for blood type. Grossly normal female with Apgars of 8 and 9, delivered at 10:04 p.m. on 07/14/2018, with weight of 5 pounds 3 ounces. DRAINS: Barragan to gravity draining clear urine. Job ID: [id number]
[2018-07-15] MEDS: Magnesium Sulfate 20 gm/500 ml 20 GM/500 ML BAG IVPB SCH ×2 (04:13→13:49)
--- NOTE | 2018-07-15 06:29 | PDOC.EVN ---
Event Note - Event Note Event Note: Mag Check Note 18 yr old G1 s/p PLTCS at 35.1 wks 2/2 preeclampsia with severe features Patient doing well. Denies headache, vision change, nausea, RUQ abdominal pain. BP 128/72, max was 139/90 since last check. Bandages clean, dry, intact. hemorrhage - Patient had intraoperative QBL of 710. She then had hemorrhage of 300 ml followed by 289 ml an hour later - s/p 1 dose rectal cytotec. Bleeding improved overnight but pad did have more bleeding this morning, nurse to weigh now. - Uterus firm @ umbilicus Pre-eclampsia with severe features s/p delivery, asymptomatic - BP now all < 140/90 - continue mag for 24 hrs (until 2044) - DTRs intact, urine output adequate - cont to monitor closely, recheck in 4 hrs.
--- NOTE | 2018-07-15 07:29 | PDOC.OBPPN ---
FMR OB PN: Subj - Interval History Hospital Day: 2 Day: 1 Indentification: 18 yo @ 35.1 wks by 10.3 wk US FMR OB PN: Obj - Maternal Vital signs: BP: 126/79 HR: 95 RR: 18 - Urine output I&O: Urine output - 1200 cc overnight (avg 100-200cc/hr) - Lochia Lochia: scant FMR OB PN: Exam - Physical Exam General: NAD HEENT: normocephalic and atraumatic Heart: RRR, normal S1/S2 General: CTAB Neurological: cranial nerves II through XII intact, DTR +2 : bandage intact FMR OB PN: Data - Labs Lab results: Laboratory Results - last 24 hr 07/14/18 07/14/18 07/14/18 20:06 20:06 20:06 WBC RBC Hgb Hct MCV MCH MCHC RDW Plt Count MPV Sodium 137 Potassium 4.1 Chloride 107 Carbon Dioxide 19 L Anion Gap 15 BUN 15 Creatinine 0.67 Estimated GFR (MDRD) Greater than 90 Glucose 103 Calcium 9.7 Total Bilirubin Less than 0.2 L AST 16 ALT Less than 7 L Alkaline Phosphatase 158 H Serum Total Protein 6.0 Albumin 3.0 L Globulin 3.0 Albumin/Globulin Ratio 1.0 L Urine Color Urine Clarity Urine pH Ur Specific [place] Urine Protein Urine Glucose (UA) Urine Ketones Urine Blood Urine Nitrite Urine Bilirubin Urine Urobilinogen Ur Leukocyte Esterase Urine RBC Urine WBC Ur Squamous Epith Cells Urine Bacteria Hyaline Casts Urine Culture Reflexed U Random Total Protein Urine Creatinine Syphilis IgG/IgM Ab Nonreactive Hep Bs Antigen Non-Reactive HIV 1&2 Antigen & Ab Blood Type Antibody Screen 07/14/18 07/14/18 07/14/18 20:06 20:06 20:06 WBC 6.6 RBC 4.37 Hgb 11.9 L Hct 35.5 L MCV 81.4 MCH 27.2 MCHC 33.4 RDW 17.0 H Plt Count 213 MPV 9.9 Sodium Potassium Chloride Carbon Dioxide Anion Gap BUN Creatinine Estimated GFR (MDRD) Glucose Calcium Total Bilirubin AST ALT Alkaline Phosphatase Serum Total Protein Albumin Globulin Albumin/Globulin Ratio Urine Color Urine Clarity Urine pH Ur Specific [place] Urine Protein Urine Glucose (UA) Urine Ketones Urine Blood Urine Nitrite Urine Bilirubin Urine Urobilinogen Ur Leukocyte Esterase Urine RBC Urine WBC Ur Squamous Epith Cells Urine Bacteria Hyaline Casts Urine Culture Reflexed U Random Total Protein Urine Creatinine Syphilis IgG/IgM Ab Hep Bs Antigen HIV 1&2 Antigen & Ab Non-Reactive Blood Type O POSITIVE Antibody Screen NEGATIVE 07/14/18 07/14/18 20:10 20:10 WBC RBC Hgb Hct MCV MCH MCHC RDW Plt Count MPV Sodium Potassium Chloride Carbon Dioxide Anion Gap BUN Creatinine Estimated GFR (MDRD) Glucose Calcium Total Bilirubin AST ALT Alkaline Phosphatase Serum Total Protein Albumin Globulin Albumin/Globulin Ratio Urine Color YELLOW Urine Clarity CLOUDY Urine pH 6.5 Ur Specific [place] 1.026 Urine Protein > or equal to 300 H Urine Glucose (UA) Negative Urine Ketones Negative Urine Blood Negative Urine Nitrite Negative Urine Bilirubin Negative Urine Urobilinogen 1.0 Ur Leukocyte Esterase Moderate H Urine RBC 4-6 Urine WBC Greater Than 50-TNTC H Ur Squamous Epith Cells 7-10 H Urine Bacteria 1+ H Hyaline Casts 7-10 HYALINE CAST H Urine Culture Reflexed No U Random Total Protein 813 H Urine Creatinine 171.90 H Syphilis IgG/IgM Ab Hep Bs Antigen HIV 1&2 Antigen & Ab Blood Type Antibody Screen FMR OB PN: A/P - Problem List (1) delivery with vacuum assistance, delivered, current hospitalization Current Visit: Yes Status: Acute Code(s): O82 - ENCOUNTER FOR DELIVERY WITHOUT INDICATION (2) Severe pre-eclampsia affecting first Current Visit: Yes Status: Acute Code(s): O14.10 - SEVERE PRE-ECLAMPSIA, UNSPECIFIED TRIMESTER (3) hemorrhage Current Visit: Yes Status: Acute Code(s): O72.1 - OTHER IMMEDIATE HEMORRHAGE (4) care following delivery Current Visit: Yes Status: Acute Code(s): Z39.2 - ENCOUNTER FOR ROUTINE FOLLOW-UP Disposition: On Mag for 24 hours after delivery. No signs of Mg toxicity. No further severe range pressures. PRNs available. hemorrhage has resolved. Lochia normal. AM H/H pending Pt tolerating clears. Has not passed flatus yet. Continue routine PP care Discussion: Date/Time: 07/15/18 3686 This H&P was discussed with Dr. Johnston who agrees with the above documentation and plan. Addendum - Attending - Attending Attestation Date/Time: 07/15/18 8256 I personally evaluated the patient and discussed the management with Dr. Goss I agree with the History, Examination, Assessment and Plan documented above with any addition or exceptions noted below- Patient without complaints. Denies any RAI, visual changes. Afebrile VSS U/C=381-767 mL/hr. A/P: 1) POD #1 S/P 1* LCT C/S for low lying placenta and pre-eclampsia with severe features- on magnesium sulfate- continue for total of 24 hours post delivery. Good urine output. BP much improved. Advance diet.
[2018-07-15 11:02] LABS: Hemoglobin 7.5 g/dL (12.0-16.0); Mean Corpuscular HGB CONC 33.9 g/dL (32.0-36.0); Mean Corpuscular Hemoglobin 27.6 pg (25.0-35.0); Mean Corpuscular Volume 81.5 fL (78.0-98.0); Mean Platelet Volume 9.1 fL (7.4-10.4); Platelet Count 173 thou/uL (130-400); RBC Distribution Width 17.3 % (11.5-14.5); Red Blood Cell (RBC) Count 2.72 mill/uL (4.00-5.20); White Blood Cell (WBC) Count 9.6 thou/uL (4.8-10.8)
[2018-07-15] MEDS ORDERED: HYDROcodone/Acetaminophen 5/325 mg Tablet PO PRN ×2 (12:20→20:19)
--- NOTE | 2018-07-15 12:24 | PDOC.EVN ---
Addendum entered and electronically signed by Bhavik Lofton DO 07/15/18 12:45 : BPs have been running 120s/70s. Last two BPs 122/70, 125/77 Original Note: Event Note - Event Note Event Note: Pt is doing well and has been up to seen her in the NICU. She denies SOB , changes in her vision, headaches. She reports mild lightheadedness. Reflexes are 2/4 globally, Urine output is 150ml in the last hour, heart RRR, lungs CTAB. We will continue mag, start some clear liquids.
[2018-07-15] MEDS ORDERED: Calcium Gluc 4.6 MEQ/10 ML (100 MG/ML) SLOW IVP PRN (20:19)
[2018-07-15] MEDS ORDERED: Acetaminophen 325 MG TAB PO PRN (20:19)
[2018-07-15] MEDS ORDERED: NS / Oxytocin 40 units/1000ml 1,000 ML IV SCH (20:19)
--- NOTE | 2018-07-15 20:27 | PDOC.EVN ---
Event Note - Event Note Event Note: 07/15/2018 at 17:00 Patient doing well. She denies any shortness of breath, chest pain, swelling. Adequate urine output. Lungs clear to auscultation. Systolic murmur auscultated. DTR's 2+. Highest BP has been 142/80's. Patient asymptomatic. Hg low at 7.5. She was up to see infant in NICU today and denied any dizziness. She does have a systolic murmur on exam. Will recheck H&H in AM and transfuse if symptomatic or Hg <7. Continue BID iron. Plan to d/c Mg and transfer to floor in 2-3 hours. Patient doing well and BP's well controlled. Patient has not required any medications. Susi Ceballos, DO PGY-2
[2018-07-15] MEDS ORDERED: Ibuprofen 800 MG TAB PO SCH (20:45)
[2018-07-15] MEDS: Docusate Calcium (SURFAK) 240 MG CAP PO SCH (21:00)
[2018-07-15] MEDS: Ferrous Sulfate 325 MG TAB PO SCH (21:00)
[2018-07-16] MEDS: HYDROcodone/Acetaminophen 5/325 mg Tablet PO PRN ×3 (04:30→21:31)
[2018-07-16] MEDS: Lactated Ringer's 1,000 ML IV SCH ×3 (05:54→17:54)
[2018-07-16] MEDS: Ibuprofen 800 MG TAB PO SCH ×3 (05:56→21:31)
--- NOTE | 2018-07-16 07:31 | PDOC.OBPPN ---
FMR OB PN: Subj - Interval History Hospital Day: 2 Day: 2 Chief Complaint: None Indentification: 18 year old Interval History: delivered via primary LTCS due to severe pre-eclampsia/low lying placenta FMR OB PN: Obj - Maternal Vital signs: BP: 150/88 HR: 80 RR: 16 Tmax: 98.5 Pox: 97% on RA - Urine output I&O: 07/15/18 07/16/18 07/17/18 06:59 06:59 06:59 Output Total 750 Balance -750 - Lochia Lochia: Minimal - Pain Management Pain scale: 0 Intervention: oral medication ([place], Ibuprofen) FMR OB PN: Exam - Physical Exam General: NAD Heart: RRR General: CTAB Abdomen: soft, fundus(cm) (3 fingerbreadths below umbilicus) Neurological: cranial nerves II through XII intact Skin: no rash - Pelvic Exam : non-tender, no discharge, no edema, normal lochia, other (well- healing pfannenstiel incision) FMR OB PN: Data - Labs Lab results: Laboratory Results - last 24 hr 07/15/18 10:38 WBC 9.6 RBC 2.72 L Hgb 7.5 L Hct 22.2 L MCV 81.5 MCH 27.6 MCHC 33.9 RDW 17.3 H Plt Count 173 MPV 9.1 FMR OB PN: A/P - Problem List (1) delivery with vacuum assistance, delivered, current hospitalization Current Visit: Yes Status: Acute Code(s): O82 - ENCOUNTER FOR DELIVERY WITHOUT INDICATION (2) Severe pre-eclampsia affecting first Current Visit: Yes Status: Acute Code(s): O14.10 - SEVERE PRE-ECLAMPSIA, UNSPECIFIED TRIMESTER (3) hemorrhage Current Visit: Yes Status: Acute Code(s): O72.1 - OTHER IMMEDIATE HEMORRHAGE (4) care following delivery Current Visit: Yes Status: Acute Code(s): Z39.2 - ENCOUNTER FOR ROUTINE FOLLOW-UP Disposition: Severe pre-eclampsia. - one elevated BP this morning. Pt asymptomatic, did not require treatment. Will continue to monitor. - Mg discontinued last night. - Will continue to monitor for 48-72 hours. hemorrhage. -Hg yesterday 7.5. - pt asymptomatic. - will repeat H/H this AM. - Continue PO iron. Late , delivered. - routine PP care. - ambulation encouraged given increased risk of DVT/PE with recent surgery, weight, and pre-e. - discussed making appointment for 2 weeks PP for pt as well as 3-5 day follow- up for . Discussion: Date/Time: 07/16/18 8206 This H&P was discussed with who agrees with the above documentation and plan. Addendum - Attending - Attending Attestation Date/Time: 07/16/18 5819 I personally evaluated the patient and discussed the management with Dr. Goss I agree with the History, Examination, Assessment and Plan documented above with any addition or exceptions noted below- Patient without complaints. Ambulating in halls. Denies any dizziness. [place] well controlled. Afebrile VSS. A/ P: 1) POD#2 s/p 1* LCT C/S for low lying placenta and pre-eclampsia with severe features- continue current care. BP much better. Continue to monitor. 2) Anemia- asymptomatic; recheck in AM. Continue iron replacement therapy.
[2018-07-16 09:17] LABS: Platelet Count 149 thou/uL (130-400)
[2018-07-16] MEDS: Ferrous Sulfate 325 MG TAB PO SCH ×2 (09:35→21:31)
[2018-07-16] MEDS: Docusate Calcium (SURFAK) 240 MG CAP PO SCH ×2 (09:35→21:31)
[2018-07-17] MEDS: Lactated Ringer's 1,000 ML IV SCH ×3 (02:01→21:35)
--- NOTE | 2018-07-17 05:49 | PDOC.PP ---
Post Progress Note Post Day #: 3 Subjective: Pt is doing well this morning. She reports passing gas but no BM. She reports ambulation well without dizziness or light headednes. PO intake tolerated: yes Flatus: yes Ambulation: yes Vital Signs (12 hours) Temp Pulse Resp BP Pulse Ox 07/16/18 21:30 100 07/16/18 19:47 98.3 F 98 20 147/74 H 100 Weight Weight 83.007 kg - Physical Examination General: NAD Cardiovascular: no m/r/g, RRR Respiratory: clear to auscultation bilaterally, non-labored breathing Abdominal: + bowel sounds, lochia, no distention, appropriately TTP Fundus firm & at: 2 cm below umbilicus Extremities: negative homans (B) (trace edema of lower extremities) Skin: CS incision dry & intact Neurological: no gross focal deficits Psychiatric: A&Ox3, normal affect Result Diagrams: 07/17/18 07:13 07/14/18 20:06 Additional Labs: Post Labs Blood Type O POSITIVE 07/14/18 20:06 Hep Bs Antigen Non-Reactive S/CO (NonReactive) 07/14/18 20:06 (1) Anemia affecting Code(s): O99.019 - ANEMIA COMPLICATING , UNSPECIFIED TRIMESTER Status : Acute (2) delivery with vacuum assistance, delivered, current hospitalization Code(s): O82 - ENCOUNTER FOR DELIVERY WITHOUT INDICATION Status: Acute (3) care following delivery Code(s): Z39.2 - ENCOUNTER FOR ROUTINE FOLLOW-UP Status: Acute (4) hemorrhage Code(s): O72.1 - OTHER IMMEDIATE HEMORRHAGE Status: Acute (5) Severe pre-eclampsia affecting first Code(s): O14.10 - SEVERE PRE-ECLAMPSIA, UNSPECIFIED TRIMESTER Status: Acute (6) Low lying placenta nos or without hemorrhage, third trimester Code(s): O44.43 - LOW LYING PLACENTA NOS OR WITHOUT HEMOR, THIRD TRIMESTER Status: Acute - Assessment/Plan This is a 18 yo G1 now P1 whose and delivery was complictated by pre- eclampsia with severe features and hemorrhage Severe pre-eclampsia -1 elevated BP overnight, asymptomatic, and did not require medication -Will continue monitoring BP -Remains asymptomatic Hemorrhage following pLTCS, vacuum-assisted -Hg was 7.0 yesterday, pending AM H&H -Pt remains asymptomatic -Continue PO iron Late (35.1) , delivered -Routine care -Encouraged ambulation and PO intake Addendum - Attending - Attending Attestation Date/Time: 07/17/18 0125 I personally evaluated the patient and discussed the management with Dr. Lofton I agree with the History, Examination, Assessment and Plan documented above with any addition or exceptions noted below- Patient reports some spots when she stood up today. No dizziness or SOB. Tolerating diet. Afebrile. VSS. A/P: 1 ) POD#3 s/p LCT C/S for low lying placenta and pre-e with severe features - continue current care. Occasional elevated pressures- if persist will start on antihypertensives. 2) Anemia- stable; will continue to monitor if has anymore spots/dizziness, will transfuse 1 u pRBCs.
[2018-07-17] MEDS: Ibuprofen 800 MG TAB PO SCH ×3 (06:27→21:33)
[2018-07-17 08:04] LABS: Platelet Count 181 thou/uL (130-400)
[2018-07-17] MEDS: Docusate Calcium (SURFAK) 240 MG CAP PO SCH ×2 (09:06→21:33)
[2018-07-17] MEDS: Ferrous Sulfate 325 MG TAB PO SCH ×2 (09:06→21:33)
[2018-07-18] MEDS: Ibuprofen 800 MG TAB PO SCH ×2 (05:46→14:17)
[2018-07-18 07:01] LABS: Hemoglobin 8.3 g/dL (12.0-16.0)
[2018-07-18 07:36] VITALS: BP 150/90; TEMP 97.9
--- NOTE | 2018-07-18 07:43 | PDOC.PP ---
Post Progress Note Post Day #: 4 Subjective: This morning patient states she is feeling well. Eating well, ambulating without difficulty. No weakness or light-headedness. Occassionally sees stars for a few seconds if standing up quickly. She denies having a BM yet but is passing gas. No RAI, scotoma, SOB, abd pain, or swelling. Less bleeding than a period. PO intake tolerated: yes Flatus: yes Ambulation: yes Vital Signs (12 hours) Temp Pulse Resp BP Pulse Ox 07/18/18 07:35 97.9 F 75 16 150/90 H 100 07/18/18 05:45 98.4 F 73 16 137/86 07/17/18 23:42 73 16 139/83 97 Weight Weight 83.007 kg Most Recent Monitor Data Heart Rate from ECG 91 - Physical Examination General: NAD Cardiovascular: no m/r/g, RRR Respiratory: clear to auscultation bilaterally, non-labored breathing Abdominal: + bowel sounds, lochia, no distention, appropriately TTP Fundus firm & at: 1 cm below umbilicus Extremities: negative homans (B) Neurological: no gross focal deficits Psychiatric: A&Ox3, normal affect Result Diagrams: 07/18/18 06:38 07/14/18 20:06 Additional Labs: Post Labs Blood Type O POSITIVE 07/14/18 20:06 Hep Bs Antigen Non-Reactive S/CO (NonReactive) 07/14/18 20:06 (1) Anemia affecting Code(s): O99.019 - ANEMIA COMPLICATING , UNSPECIFIED TRIMESTER Status : Acute (2) delivery with vacuum assistance, delivered, current hospitalization Code(s): O82 - ENCOUNTER FOR DELIVERY WITHOUT INDICATION Status: Acute (3) care following delivery Code(s): Z39.2 - ENCOUNTER FOR ROUTINE FOLLOW-UP Status: Acute (4) hemorrhage Code(s): O72.1 - OTHER IMMEDIATE HEMORRHAGE Status: Acute - Assessment/Plan This is a 18 yo delivery by c/s at 35.1 wks by c/s. POD 4 complicated by pre-eclampsia with severe features, low-lying placenta , and hemorrhage # Severe pre-eclampsia - pressures in high 130s to low 140s systolic - would rec'd low dose of nifedipine on d/c - lower risk for pre-e >2 days after delivery, still at risk for 6 weeks - monitor bp at home x2 daily and f/u in clinic next week - Remains asymptomatic # Hemorrhage following pLTCS, vacuum-assisted -Hgb 8.3 s/p transfusion 1U yesterday -Pt remains asymptomatic -Continue PO iron, docusate # Late (35.1) , delivered -Routine care -Encouraged ambulation and PO intake Dispo: anticipate d/c today Addendum - Attending - Attending Attestation Date/Time: 07/18/18 5870 I personally evaluated the patient and discussed the management with Dr. Ayon I agree with the History, Examination, Assessment and Plan documented above with any addition or exceptions noted below. Postoperative day # 4 s/p PLTCS complicated by preeclampsia with severe features. BP has been mild range or normotensive. Pt asymptomatic. Agree with Dr Ayon's plan to monitor BP BID and have her followup in clinic within next week. Strict preeclampsia precautions reviewed. Stable for d/c to home.
[2018-07-18] MEDS: Docusate Calcium (SURFAK) 240 MG CAP PO SCH (08:55)
[2018-07-18] MEDS: Ferrous Sulfate 325 MG TAB PO SCH (08:55)
[2018-07-18] MEDS: Lactated Ringer's 1,000 ML IV SCH (08:56)
[2018-07-18] MEDS: HYDROcodone/Acetaminophen 5/325 mg Tablet PO PRN (14:17)
== END 2018-07-18 15:06 | disposition home or self-care (01) | DRG 788 ==
LOC: L&D/OP 18:04 → L&D 22:02 → 3SE 07-15 22:48
PROVIDERS: ADMIT Family Medicine; ATTEND Family Medicine
PROC: 10D00Z1 Extraction of Products of Conception, Low, Open Approach (ICD-10-PCS; principal; 2018-07-14)
DX: O14.14 Severe pre-eclampsia complicating childbirth (principal); Z3A.35 35 weeks gestation of pregnancy; Z37.0 Single live birth; O99.02 Anemia complicating childbirth; D50.9 Iron deficiency anemia, unspecified; O44.43 Low lying placenta NOS or without hemorrhage, third trimester; O72.1 Other immediate postpartum hemorrhage
CPT/HCPCS: 36415; 36430; 51702; 80053; 81001; 82570; 84156; 85014; 85018; 85027; 85049; 86780; 86850; 86900; 86901; 87340; 87389; 88307; 99285; J0360; J1200; J2270; J2405; J2590; J3010; J3475; J3490; P9016

== ENCOUNTER 2025-02-08 14:36 | Emergency (ER) | payer BC, SELFPAY ==
[2025-02-08 15:47] LABS: Bacteria/HPF None Seen HPF (None Seen); CAUTI Indications for Culture Dysuria,urgency,freq; Glucose, Urine (Dipstick) Normal (Negative); Leukocyte Negative Leu/uL (Negative); Protein, Urine (Dipstick) Negative (Neg-Trace); RBC/HPF 0-3 HPF (0-3); Specific Gravity, Urine 1.009 (1.002-1.036); WBC/HPF 0-3 HPF (0-3)
[2025-02-08 15:49] LABS: Urine Culture Reflex No No
[2025-02-08 15:57] LABS: Pregnancy Test - Urine (BHCG) POSITIVE (Negative); Pregu Control Background? CLEAR/WHITE (CLR/WHITE); Pregu Control Bar Appear? YES (CONTROL BAR)
[2025-02-08 17:51] LABS: #Basophils 0.04 10x3/uL (0.0-0.2); #Eosinophils 0.10 10x3/uL (0.0-0.7); #Monocytes 0.25 10x3/uL (0.11-0.59); #Neutrophils 4.18 10x3/uL (1.40-6.50); %Basophils 0.7 % (0.0-1.0); %Eosinophils 1.8 % (0.0-10.0); %Lymphocytes 18.0 % (21.0-51.0); %Monocytes 4.5 % (0.0-10.0); %Neutrophils 74.6 % (42.0-75.0); Hematocrit 39.2 % (36.0-47.0); Hemoglobin 12.6 g/dL (12.0-16.0); Mean Corpuscular Hemoglobin 26.6 pg (27.0-31.0); Mean Corpuscular Volume 82.7 fL (78.0-98.0); Platelet Count 277 10x3/uL (130-400); Red Blood Cell (RBC) Count 4.74 mill/uL (4.20-5.40); White Blood Cell (WBC) Count 5.60 10x3/uL (4.8-10.8)
[2025-02-08 18:13] LABS: ALT (SGPT) 14 U/L (Less than 34); AST (SGOT) 17 U/L (11-34); Albumin 4.4 g/dL (3.1-4.5); Alkaline Phosphatase 48 U/L (40-110); Anion Gap 12 mmol/L (10-20); BUN (Urea Nitrogen) 5 mg/dL (7.0-18.7); Bilirubin, Total 0.5 mg/dL (0.3-1.2); Calc. Creatinine Clearance 0 mL/min (70-130); Calcium 9.2 mg/dL (7.8-10.44); Carbon Dioxide 24 mmol/L (22-29); Chloride 105 mmol/L (98-107); Globulin 3.2 g/dL (2.4-3.5); Glucose 128 mg/dL (70-105); Lipase 13 U/L (8-78); Potassium 3.6 mmol/L (3.5-5.1); Sodium 137 mmol/L (136-145)
== END 2025-02-08 17:30 | disposition home or self-care (01) ==
LOC: ERS 14:36
DX: R10.9 Unspecified abdominal pain (principal); Z33.1 Pregnant state, incidental
CPT/HCPCS: 76705; 76801; 80053; 81001; 81025; 83690; 84702; 85025; 86900; 86901